=== PATIENT | female | born 1950 | race Caucasian/White ===

== ENCOUNTER 2025-03-01 10:05 | Outpatient (AMB) | payer MEDICARE, SELFPAY | END 2025-03-01 10:47 | disposition home or self-care (01) | LOC: HO.HMGAL 10:05 | PROVIDERS: PCP Internal Medicine; Visit Provider Registered Nurse Emergency | DX: J30.89 Other allergic rhinitis (principal) | CPT/HCPCS: 95117; 95165 ==

== ENCOUNTER 2025-03-09 10:22 | Outpatient (AMB) | payer MEDICARE, SELFPAY | END 2025-03-09 10:34 | disposition home or self-care (01) | LOC: HO.HMGAL 10:22 | PROVIDERS: PCP Internal Medicine; Visit Provider Registered Nurse Emergency | DX: J30.89 Other allergic rhinitis (principal) | CPT/HCPCS: 95117; 95165 ==

== ENCOUNTER 2025-03-30 10:47 | Outpatient (AMB) | payer MEDICARE, SELFPAY | END 2025-03-30 11:08 | disposition home or self-care (01) | LOC: HO.HMGAL 10:47 | PROVIDERS: PCP Internal Medicine; Visit Provider Registered Nurse Emergency | DX: J30.89 Other allergic rhinitis (principal) | CPT/HCPCS: 95117; 95165 ==

== ENCOUNTER 2025-04-18 11:24 | Outpatient (AMB) | payer MEDICARE, SELFPAY | END 2025-04-18 11:33 | disposition home or self-care (01) | LOC: HO.HMGAL 11:24 | PROVIDERS: PCP Internal Medicine; Visit Provider Registered Nurse Emergency | DX: J30.89 Other allergic rhinitis (principal) | CPT/HCPCS: 95117; 95165 ==

== ENCOUNTER 2025-05-02 11:38 | Outpatient (AMB) | payer MEDICARE, SELFPAY | END 2025-05-02 11:39 | disposition home or self-care (01) | LOC: HO.HMGAL 11:38 | PROVIDERS: PCP Internal Medicine; Visit Provider Registered Nurse Emergency | DX: J30.89 Other allergic rhinitis (principal) | CPT/HCPCS: 95117; 95165 ==

== ENCOUNTER 2025-05-18 10:29 | Outpatient (AMB) | payer MEDICARE, SELFPAY | END 2025-05-18 10:30 | disposition home or self-care (01) | LOC: HO.HMGAL 10:29 | PROVIDERS: PCP Internal Medicine; Visit Provider Registered Nurse Emergency | DX: J30.89 Other allergic rhinitis (principal) | CPT/HCPCS: 95117; 95165 ==

== ENCOUNTER 2025-06-01 10:59 | Outpatient (AMB) | payer MEDICARE, SELFPAY ==
--- OUTSIDE RECORDS SUMMARY | 2025-05-28 23:59 | XMS_ITS | Continuity of Care Document ---
Author Organization [facility] Address [address] [place] [address]- Care Team Providers Care Strategic Alliances Manager Name Role Phone Rogelio Walters MD Primary Care Physician Encounter [facility] NBR [phone] Date(s): 04/28/25 - 05/28/25 [facility] [address] [place] [id number] Encounter Type: Triage Allergies, Adverse Reactions, Alerts No Known Allergies Immunizations Given and Recorded Vaccine Date Status Refusal Reason SARS-CoV-2 (COVID-19) mRNA-1273 vaccine 10/07/20 G iven SARS-CoV-2 (COVID-19) mRNA-1273 vaccine 09/09/20 G iven Medications alendronate 70 mg oral tablet 1 tablet = 70 mg, By Mouth, Every week, with 6-8 oz plain water, at least 30 minutes before first food, beverage, or medication of the day, # 4 tablet, 5 Refills, Maintenance, 07/31/24 3:20:00 PM EST,Tablet, [employer] #[id number], ., 165.4, cm, 07/13/24 8:25:00 EST, Height Start Date: 07/31/24 Status: Ordered Medication Dispense Status: Completed Quantity: 4.0 Unit: tablet Total Allowed Fills: 6 Fills Dispensed: 0 Indications: Age-related osteoporosis without current pathological fracture; Evista = 60 mg, By Mouth, Daily, 0 Refills, Maintenance, 05/07/21 8:47:00 AM EDT, Partial fill upon patient request if the prescription is for a schedule II opioid drug. Start Date: 05/07/21 Status: Ordered Medication Dispense Status: Completed Total Allowed Fills: 1 Fills Dispensed: 0 PriLOSEC OTC 20 mg oral delayed release tablet 1 tablet = 20 mg, By Mouth, Daily, 0 Refills, Maintenance, 07/03/21 8:56:00 AM EST, Partial fill upon patient request if the prescription is for a schedule II opioid drug. Start Date: 07/03/21 Status: Ordered Medication Dispense Status: Completed Total Allowed Fills: 1 Fills Dispensed: 0 Social History Social History Type Response Sex Sex Representation Female (finding) Patient Care team information Care Team Personnel Name: Rogelio Walters MD Position: S Physician - Primary Care Member Role: PCP Address: [address] [place] [address], [facility] [address] Telecom: Care Team Related Persons Name: VLADIMIR BEGUM Insurance Providers Guarantor name: RENZO [facility] Health Plan Information #: 1 Payer: [facility] PPO Payer Identifier: NA Member Number: [id number] Group Number: [id number] Subscriber Identifier: NA Relationship to Subscriber: self Coverage Type: Medicare PPO Coverage Verification Date: NA Telecom: NA Address:
== END 2025-06-01 11:00 | disposition home or self-care (01) ==
LOC: HO.HMGAL 10:59
PROVIDERS: PCP Internal Medicine; Visit Provider Registered Nurse Emergency
DX: J30.89 Other allergic rhinitis (principal)
CPT/HCPCS: 95117; 95165

== ENCOUNTER 2025-06-15 10:03 | Outpatient (AMB) | payer MEDICARE, SELFPAY | END 2025-06-15 10:33 | disposition home or self-care (01) | LOC: HO.HMGAL 10:03 | PROVIDERS: PCP Internal Medicine; Visit Provider Registered Nurse Emergency | DX: J30.89 Other allergic rhinitis (principal) | CPT/HCPCS: 95117; 95165 ==

== ENCOUNTER 2025-06-29 10:34 | Outpatient (AMB) | payer MEDICARE, SELFPAY | END 2025-06-29 10:35 | disposition home or self-care (01) | LOC: HO.HMGAL 10:34 | PROVIDERS: PCP Internal Medicine; Visit Provider Registered Nurse Emergency | DX: J30.89 Other allergic rhinitis (principal) | CPT/HCPCS: 95117; 95165 ==

== ENCOUNTER 2025-07-13 10:19 | Outpatient (AMB) | payer MEDICARE, SELFPAY | END 2025-07-13 10:20 | disposition home or self-care (01) | LOC: HO.HMGAL 10:19 | PROVIDERS: PCP Internal Medicine; Visit Provider Registered Nurse Emergency | DX: J30.89 Other allergic rhinitis (principal) | CPT/HCPCS: 95117; 95165 ==